=== PATIENT | male | born 1980 | race Caucasian/White ===

== ENCOUNTER 2016-10-26 08:14 | Day surgery (SDC) | payer OTHER ==
[~2016-10-26] VITALS: Ht 170.2 cm; Wt 88.5 kg
[2016-10-26 08:26] VITALS: BP 137/87
[2016-10-26 16:13] VITALS: BP 126/75
== END 2016-10-26 16:55 | disposition home or self-care (01) ==
LOC: DS 08:14 → OR 10:00 → DS 10:00 → OR 10:30 → MU 14:57 → DS 16:55
PROVIDERS: Surgery
PROC: 0WUF0JZ Supplement Abdominal Wall with Synthetic Substitute, Open Approach (ICD-10-PCS; principal; 2016-10-26 10:00)
DX: K42.9 Umbilical hernia without obstruction or gangrene (principal); I10 Essential (primary) hypertension; Z68.30 Body mass index [BMI] 30.0-30.9, adult
CPT/HCPCS: C1781; J0690; J1170; J1885; J2250; J2405; J2704; J3010; J3490; J7120